=== PATIENT | male | born 1960 | race Caucasian/White ===

== ENCOUNTER 2016-10-04 06:26 | Day surgery (SDC) | payer BC, OTHER ==
[2016-09-28 09:00] VITALS: BMI 35.0
--- NOTE | 2016-09-28 09:43 | PAT Medication Instructions ---
Service Date Sep 28, 2016. Current Home Medication List Amlodipine (Norvasc), 10 MG PO QAM Enoxaparin (Lovenox), 120 MG SQ Q12H Hydrocodone/Acetaminophen 10MG/325MG (Bonesteel 10MG/325MG), 1 TAB PO Q4H PRN for Pain Losartan Potassium (Cozaar), 1 TAB PO QAM Medication Instructions For Your Scheduled Surgery - Check with surgeon/Dr. Ling for surgeon: Enoxaparin (Lovenox), 120 MG SQ Q12H - Hold the following medications the morning of surgery: Losartan Potassium (Cozaar), 1 TAB PO QAM - Take the following medications the morning of surgery with a sip of water: Hydrocodone/Acetaminophen 10MG/325MG (Bonesteel 10MG/325MG), 1 TAB PO Q4H PRN for Pain (okay to take up to 4 hours prior to surgery if needed) Amlodipine (Norvasc), 10 MG PO QAM - Take the following medications as scheduled the night before surgery: Hydrocodone/Acetaminophen 10MG/325MG (Bonesteel 10MG/325MG), 1 TAB PO Q4H PRN for Pain (if needed) If you have any questions please call us at [phone] or [phone] or [phone]
--- NOTE | 2016-09-28 10:28 | DIAGNOSTIC IMAGING REPORT ---
CHEST PREADMISSION(PA/LAT) CLINICAL HISTORY: Preoperative chest COMPARISON STUDY: No previous studies for comparison. FINDINGS: There are postsurgical changes of a midline sternotomy. The heart is normal in size. There is no failure. There is no focal pulmonary consolidation. There are no pleural effusions.[ IMPRESSION: No active disease in the chest. Electronically signed by: Ez Sanon M.D. 09/28/2016 10:26 AM Dictated Date/Time: 09/28/2016 10:25 AM
[2016-09-28 10:45] LABS: BASO % 0.5 %; BASO ABS # 0.03 K/uL (0-0.2); COMPLETE YES; EOS % 6.6 %; HEMATOCRIT 45.3 % (42-52); IG% 0.2 %; LYMPH % 28.2 %; LYMPH ABS # 1.68 K/uL (1.2-3.4); MEAN CELL VOLUME 95.8 fL (80-100); MEAN CORPUSCULAR HGB CONC 35.5 g/dl (32-36); MEAN PLATELET VOLUME 10.2 fL (7.4-10.4); MONO % 6.9 %; NEUT % 57.6 %; PLATELET COUNT 286 K/uL (130-400); RED BLOOD COUNT 4.73 M/uL (4.7-6.1); WHITE BLOOD COUNT 5.95 K/uL (4.8-10.8)
[2016-09-28 10:48] LABS: BUN/CREATININE RATIO 16.4 (10-20); CALCIUM 9.9 mg/dl (8.5-10.1); CREATININE 0.91 mg/dl (0.60-1.40); POTASSIUM 4.5 mmol/L (3.5-5.1); URINE APPEARANCE CLEAR (CLEAR); URINE BILIRUBIN NEG (NEG); URINE COLOR YELLOW; URINE NITRITE NEG (NEG); URINE PH 6.5 (4.5-7.5); URINE SPECIFIC GRAVITY 1.023 (1.000-1.030); UROBILINOGEN NEG (NEG)
[2016-09-28 10:51] LABS: PARTIAL THROMBOPLASTIN RATIO 1.2; PROTHROMBIN TIME (PATIENT) 10.5 SECONDS (9.0-12.0)
[2016-09-28 10:59] LABS: MANUAL MICROSCOPIC REQUIRED? NO; REVIEW REQ? NO
--- NOTE | 2016-10-02 21:41 | HISTORY & PHYSICAL EXAMINATION ---
DATE OF ADMISSION: 10/04/2016 ADMISSION HISTORY AND PHYSICAL CHIEF COMPLAINT: Left elbow injury. HISTORY OF PRESENT ILLNESS: This is a 56-year-old male patient of Dr. Limon'triny complaining of an elbow injury on the left from 09/16/2016. The patient was home was apparently pushing a very heavy box and sustained the injury. An MRI confirmed a left distal biceps tendon rupture. The patient wishes to proceed with a left distal biceps tendon repair. PAST MEDICAL HISTORY: Hypertension, history of pulmonary embolism, abnormal bleeding or bruising, history of DVT, history of obesity. SOCIAL HISTORY: Nonsmoker, nondrinker. FAMILY HISTORY: Noncontributory. REVIEW OF SYSTEMS: The patient complains of an acute left elbow injury. Otherwise, denies any shortness of breath, chest pain, nausea, vomiting or any other joint complaints. PAST SURGICAL HISTORY: Removal blood clots from lungs and carpal tunnel syndrome on the right. MEDICATIONS: Losartan 100 mg daily, amlodipine 10 mg daily, [place] as needed, Lovenox 120 mg b.i.d. ALLERGIES: No known drug allergies. PHYSICAL EXAMINATION: GENERAL: Well-developed, well-nourished 56-year-old male in no acute distress. He is alert and oriented x3 and pleasant. HEENT: Normocephalic, atraumatic. Extraocular motions are intact. Pupils are equal and reactive to light. HEART: Regular rate and rhythm, no murmurs appreciated. LUNGS: Clear. ABDOMEN: Soft and nontender, bowel sounds are present. EXTREMITIES: Left elbow reveals full range of motion with pain. He is tender at the distal insertion of the biceps tendon. He has a positive hook test and palpably there is a deformity where the insertion of the biceps tendon should be. Again, this is not fully palpable at its insertion. NEUROLOGIC: Neurovascularly he is intact in his left upper extremity. DIAGNOSES: Left elbow distal biceps tendon rupture. He has a history of hypertension, pulmonary embolism, deep vein thrombosis, abnormal bleeding and obesity. PLAN: The patient was advised of his diagnosis. Indications, risks, benefits, and postop course have all been reviewed. The patient wishes to proceed with a left biceps tendon repair. Necessary consent forms and preoperative testing clearances will be obtained.
[~2016-10-04] VITALS: Ht 188 cm; Wt 125.5 kg
[~2016-10-04 06:26] MED LIST: AMLO-114 PO; CEFAZOLIN 3000 MG/65 ML D5W IV SCH; ENOX120I SQ; HYDR-4079 PO; LACTATED RINGER'S 1000ML 1,000 ML IV SCH; LOSA1TAB38 PO
[2016-10-04] MEDS ORDERED: ROPIVACAINE 0.5% 5 MG/ML 30 ML VIAL ONE (06:36)
[2016-10-04 07:06] VITALS: BP 162/95; PULSE 70; TEMP 36.5; O2SAT 97; Ht 188 cm; Wt 125.5 kg
--- NOTE | 2016-10-04 07:24 | History & Physical Bridge Note ---
H&P Re-Evaluation Bridge Note: I have examined the patient, reviewed the History & Physical and in the interval since the performance of the History & Physical I have noted the following changes of clinical significance: No changes noted
[2016-10-04] MEDS ORDERED: FENTANYL CITRATE INJ 50 MCG/1 ML 2 ML VIAL ONE ×4 (07:51→14:01)
[2016-10-04] MEDS ORDERED: MIDAZOLAM HCL 1 MG/ML 2ML VIAL ONE (07:51)
[2016-10-04] MEDS ORDERED: HYDROmorphone INJ 1 MG/ML SYR IV PRN (08:15)
[2016-10-04] MEDS ORDERED: FENTANYL CITRATE INJ 50 MCG/1 ML 2 ML VIAL IV PRN (08:15)
[2016-10-04] MEDS ORDERED: ONDANSETRON INJ 2 MG/ML 2 ML VIAL IV PRN ×2 (08:15→12:30)
[2016-10-04] MEDS ORDERED: ATROPINE SULFATE 0.1 MG/ML 5ML SYR IV PRN (08:15)
[2016-10-04] MEDS ORDERED: EpHEDrine SULFATE INJ 50 MG/ML AMP IV PRN (08:15)
[2016-10-04] MEDS ORDERED: KETAMINE HCL INJ 50 MG/ML 10 ML VIAL ONE (09:28)
[2016-10-04] MEDS ORDERED: HYDROmorphone INJ 2 MG/ML SYR/VIAL ONE (10:04)
[2016-10-04] MEDS ORDERED: EpHEDrine SULFATE 50MG/5ML SYR ONE (10:28)
[2016-10-04] MEDS ORDERED: ONDANSETRON INJ 2 MG/ML 2 ML VIAL ONE (10:33)
[2016-10-04] MEDS ORDERED: DEXAMETHASONE SOD INJ 4 MG/ML VIAL ONE (10:33)
[2016-10-04] MEDS ORDERED: BUPIVACAINE 0.25% 30 ML VIAL ONE (11:47)
[2016-10-04] MEDS ORDERED: ALBUTEROL HFA INHALER 8.5 GM INH ONE (12:05)
[2016-10-04] MEDS ORDERED: OXYCODONE HCL IR 5 MG TAB (IMMEDIATE RELEASE) PO PRN ×2 (12:30)
[2016-10-04] MEDS ORDERED: MoRPHine SULFATE 2 MG/ML CARP IV PRN (12:30)
[2016-10-04] MEDS ORDERED: ACETAMINOPHEN 325 MG TAB PO PRN (12:30)
[2016-10-04] MEDS ORDERED: OXYC-57 PO (12:39)
[2016-10-04] MEDS ORDERED: HYDROmorphone INJ 1 MG/ML SYR ONE (12:40)
--- NOTE | 2016-10-04 12:52 | Discharge Instructions ---
Discharge Instructions Date of Service Oct 04, 2016. Visit Reason for Visit: Left Arm Muscle Strain, Fascia & Tendon Of Other P Discharge Discharge Diagnosis / Problem: Left Distal Biceps Tendon Tear Discharge Goals Goal(s): Decrease discomfort, Improve function, Increase independence Activity Recommendations Activity Limitations: per Instructions/Follow-up section Weightbearing Status: Left non-weightbearing Anesthesia . Post Anesthesia Instructions: If you have had General Anesthesia or IV Sedation: * Do not drive today. * Resume driving when surgeon permits. * Do not make important decisions or sign legal documents today. * Call surgeon for: 1. Temperature elevations greater than 101 degrees F. 2. Uncontrollable pain. 3. Excessive bleeding. 4. Persistent nausea and vomiting. 5. Medication intolerance (nausea, vomiting or rash). * For nausea and vomiting use only clear liquids such as: tea, soda, bouillon until nausea subsides, then gradually increase diet as tolerated. * If you have any concerns or questions, call your surgeon's office. If physician is unavailable and it is an emergency, call 911 or go to the nearest emergency room. . Instructions / Follow-Up Instructions / Follow-Up Keep splint clean and dry. Use arm sling while up ambulating and for comfort. You may shower if you are able to keep the splint dry using a waterproof covering. You may flex and extend your fingers as much as you want. Call the office if you have increased swelling, increased pain not relieved by medication. You may loosen the akila wrap if you feel it is too tight. Keep the arm elevated on 1 or 2 pillows to help with swelling Continue ice pack to the elbow area regularly for the first 48 hours, then as needed. FOLLOW UP WITH DR CONNER IN 1 WEEK. CALL FOR APPOINTMENT. [phone] Diet Recommendations Recommended Home Diet: resume previous diet Procedures Procedures Performed: Left Distal Bicepts Repair Pending Studies Studies pending at discharge: no Medical Emergencies . Who to Call and When: Medical Emergencies: If at any time you feel your situation is an emergency, please call 911 immediately. . Non-Emergent Contact Non-Emergency issues call your: Surgeon Call Non-Emergent contact if: temperature is above 101.5, your pain is not controlled, your pain is worsening, wound has increased drainage, wound has increased redness . . "Provider Documentation" section prepared by Stevie Contreras. . [facility] Drug Monitoring Program Search Results: patient reviewed within database, see additional documentation Drug Monitoring Findings: Pt receiving pain meds through contracted Pain management in [place]. Pt near the end of his monthly rx. New pain RX provided due to current surgery. Pt will need to return to Pain Management provider after reasonable time healing from surgery.
--- NOTE | 2016-10-04 13:37 | DIAGNOSTIC IMAGING REPORT ---
LEFT ELBOW 2 VIEWS CLINICAL HISTORY: LT BICEPS REPAIR WITH SCREW biceps tear COMPARISON: None. DISCUSSION: The bones and joint spaces appear intact. There is no evidence of fracture, dislocation or bony disease. IMPRESSION: Image intensifier utilized for biceps tendon repair The above report was generated using voice recognition software. It may contain grammatical, syntax or spelling errors. Electronically signed by: Arnold Mcdaniels M.D. 10/04/2016 1:36 PM Dictated Date/Time: 10/04/2016 1:35 PM
--- NOTE | 2016-10-04 13:41 | Anesthesiology Progress Note ---
Anesthesia Post Op Note Date & Time Oct 04, 2016 at 13:41 Vital Signs Pain Intensity: 3 Vital Signs Past 12 Hours Date Time Temp Pulse Resp B/P (MAP) Pulse Ox O2 Delivery O2 Flow Rate FiO2 10/04/16 13:30 84 14 123/77 92 Room Air 10/04/16 13:20 36.0 85 19 133/87 91 Room Air 10/04/16 13:10 84 17 144/86 92 Room Air 10/04/16 13:00 82 15 120/87 94 Room Air 10/04/16 12:50 78 12 120/92 95 Room Air 10/04/16 12:40 78 11 133/82 97 Oxymask 10 10/04/16 12:30 80 10 131/87 96 Oxymask 10 10/04/16 12:24 36.4 78 18 137/81 95 Oxymask 10 10/04/16 07:06 36.5 70 18 162/95 (117) 97 Room Air Notes Mental Status: alert / awake / arousable, participated in evaluation Pt Amnestic to Procedure: Yes Nausea / Vomiting: adequately controlled Pain: adequately controlled Airway Patency, RR, SpO2: stable & adequate BP & HR: stable & adequate Hydration State: stable & adequate Anesthetic Complications: no major complications apparent
[2016-10-04 13:45] VITALS: BP 128/70; PULSE 86; TEMP 36.9; O2SAT 95
--- NOTE | 2016-10-04 13:46 | OPERATIVE REPORT ---
DATE OF OPERATION: 10/04/2016 INDICATION FOR PROCEDURE: A 56-year-old male who sustained an injury to his left elbow sustaining a rupture of his distal biceps. This was confirmed by MRI to be a complete rupture with some mild retraction, but no major proximal retraction. The patient is on chronic Lovenox for hypercoagulable state. PREOPERATIVE DIAGNOSIS: Left elbow distal biceps tendon rupture. POSTOPERATIVE DIAGNOSIS: Same. PROCEDURE: Left elbow distal biceps tendon repair using Arthrex distal biceps tendon button with tension slide technique and screw fixation. SURGEON: Dr. Limon. LEAD BUSINESS SYSTEMS ANALYST: Stevie Contreras PA-C. ANESTHESIA: General. OPERATIVE PROCEDURE: The patient was taken to the operating room, anesthetized under general anesthetic. She was placed supine on the operating room table. Pneumatic tourniquet was placed high about his left upper extremity. Left upper extremity was prepped and draped in sterile fashion. The arm was elevated, exsanguinated with an Esmarch bandage and pneumatic tourniquet was raised to 250 mmHg. A longitudinal incision was made along its proximal forearm just slightly biased to the radial side between the brachial radialis and the pronator teres muscles. The skin was incised sharply. Subcutaneous flaps were elevated down to the fascia. Fascial plane between those muscles was bluntly dissected. The dissection was taken down to the biceps tendon which had a significant swollen sheath and significant edema around the biceps. This was opened up and some of the scarred inflamed tendon sheath was resected to visualize the tendon tear. To visualize the insertion the patient had a fairly substantial recurrent radial artery and vein branches of the radial artery that I had to tie off with silk ties and divide those branches. This enabled me to dissect down further to the radial tuberosity. Some gentle traction was placed on the biceps tendon and it promptly retracted consistent with a complete nonretracted tear. Then the ends of the tendon were freshened up. Some of the adhesions to the tendon sheaths were released. Some of the thickened tendon sheath was resected. Then I used the Arthrex FiberWire FiberLoop type suture to make a whipstitch into the tendon locking the last suture. Then I placed retractors around the radial tuberosity. We used blunt retractors to the radial side and did not do any circumferential retractors on the radial side to protect the posterior interosseous nerve. On the ulnar side I did use a mini Ureña type retractor. This identified that there was still some of the tendon attached to the radial tuberosity more toward the ulnar side and we had to remove these fibers and use a periosteal elevator to fully visualize the radial tuberosity at which time we brought in fluoroscopy, documented our insertion site for our screw hole and then maximally supinated the arm, placed our retractors in appropriate position and then used a guide pin to drill for the biceps Endobutton type device from Arthrex. All the bone was irrigated out copiously at this time to prevent any heterotopic bone formation. Then we did drill the socket for the interference screw and the biceps insertion. I did a more copious irrigation until all bone debris was irrigated. At this time, we loaded the Endobutton onto the sutures and then passed the Endobutton with the insertion device through the hole in the radial tuberosity. I flipped the Endobutton and then used tension slide technique to advance the biceps fully seating it into the radius using arthroscopic knot tire to tie the knot with a surgeon's knot. Then we passed one suture through the screw and advanced the screw until it was flush with the shaft of the radius and then passed one of those sutures through the biceps tendon with a free tapered needle and then tied down another surgeon's knot to secure the biceps. I did take down through full extension and flexion. The repair was secure. We documented the Endobutton to be in appropriate position fluoroscopic shots. Then after further irrigation, the subcutaneous tissues were injected with 0.25% Marcaine and then we closed them with interrupted 2-0 Vicryl, 3-0 Vicryl, 4-0 Monocryl, benzoin and Steri-Strips. Sterile Webril placed and then Webril placed from the hand to the upper arm and then a posterior splint applied including side support on the splint for protection. Tourniquet was let down prior to splinting. The patient had satisfactory return of circulation to the extremity. The patient tolerated the procedure well without complications. Stevie Contreras PA-C was my nurse first aid. He functioned as nurse first aid with soft tissue retraction, instrument management. He will participate in some of the postoperative care. I attest to the content of the Intraoperative Record and any orders documented therein. Any exception s are noted below.
[2016-10-04 14:15] VITALS: BP 138/83; PULSE 91; TEMP 36.9; O2SAT 93
== END 2016-10-04 14:55 | disposition home or self-care (01) ==
LOC: C.ACU 06:26
PROVIDERS: ATTEND Orthopaedic Surgery Sports Medicine
DX: S46.292A Other injury of muscle, fascia and tendon of other parts of biceps, left arm, initial encounter (principal); X50.9XXA Other and unspecified overexertion or strenuous movements or postures, initial encounter; Y92.099 Unspecified place in other non-institutional residence as the place of occurrence of the external cause; D68.59 Other primary thrombophilia; I10 Essential (primary) hypertension; Z79.01 Long term (current) use of anticoagulants; Z86.718 Personal history of other venous thrombosis and embolism; Z86.711 Personal history of pulmonary embolism